=== PATIENT | male | born 1980 | race Caucasian/White ===

== ENCOUNTER 2017-09-28 21:34 | Emergency (ER) | payer OTHER ==
[~2017-09-28] VITALS: Ht 185.4 cm; Wt 197.0 kg
[2017-09-28 22:37] VITALS: BP 178/97
== END 2017-09-29 02:22 | disposition left against medical advice (07) ==
LOC: ER 21:35
DX: M79.662 Pain in left lower leg (principal); M79.672 Pain in left foot; Z53.21 Procedure and treatment not carried out due to patient leaving prior to being seen by health care provider